=== PATIENT | female | born 1975 | race Two or more races ===

== ENCOUNTER 2016-11-30 13:35 | Emergency (ER) | payer OTHER ==
[2016-11-30 13:54] VITALS: BP 143/91; PULSE 82; TEMP 98; BMI 27.4
--- NOTE | 2016-11-30 14:13 | PDOC ---
History of Present Illness - General Chief Complaint: Cold Symptoms Stated Complaint: ABD PAIN Time Seen by Provider: 11/30/16 13:51 History Source: Patient Exam Limitations: No Limitations - History of Present Illness Initial Comments: 11/30/16 14 11/30/16 14:14 41 year old female presents with cold symptoms, runny nose, fever chills, pain in mid chest with deep inhalation. States symptoms xx 4-5 days after son came home sick, Taking ibuprofen. Timing/Duration: reports: week Severity: reports: moderate Possible Cause: Yes: illness exposure Modifying Factors: improves with: coughing, rest Associated Symptoms: reports: chest pain/soreness, muscle aches, nasal congestion, nasal drainage Aspirin Received prior to arrival: Yes: no aspirin today ASA Contraindications(Core Measure): No: Allergy Beta Ha Contraindications(Core Measure): Yes: Not Prescribed Beta Ha Given by EMS(Core Measure): No Beta Ha Taken at Home(Core Measure): No Beta Ha Not Indicated at this Time(Core Measure): No Past History - Travel Traveled outside of the country in the last 30 days: Yes Close contact w/someone who was outside of country & ill: No - Past Medical History Allergies/Adverse Reactions: Allergies Allergy/AdvReac Type Severity Reaction Status Date / Time No Known Allergies Allergy Verified 11/30/16 13:47 Home Medications: Ambulatory Orders Ibuprofen 600 mg PO TID #20 tablet 11/30/16 Lisinopril [Prinivil] 20 mg PO DAILY 11/30/16 Loratadine [Claritin] 10 mg PO DAILY #10 tablet 11/30/16 HTN: Yes - Surgical History Appendectomy: Yes - Psycho/Social/Smoking Cessation Hx Anxiety: No Suicidal Ideation: No Smoking History: Never smoked Have you smoked in the past 12 months: No Information on smoking cessation initiated: No Hx Alcohol Use: No Drug/Substance Use Hx: No Substance Use Type: None Respiratory Specific PMHX - Complaint Specific PMHX Angina: No Bronchitis: No Pneumonia: No Pulmonary Embolus: No TB (Tuberculosis): No Review of Systems - Review of Systems Able to Perform ROS?: Yes Is the patient limited Dutch proficient: No Constitutional: Yes: Chills, Fever, Night Sweats HEENTM: Yes: Nose Congestion. No: Throat Swelling Respiratory: Yes: Cough. No: Shortness of Breath, Wheezing Cardiac (ROS): Yes: Chest Pain. No: Irregular Heart Rate, Lightheadedness, Palpitations ABD/GI: No: Constipated, Nausea *Physical Exam - Vital Signs Last Vital Signs Temp Pulse Resp BP Pulse Ox 98.0 F 82 18 143/91 100 11/30/16 13:47 11/30/16 13:47 11/30/16 13:47 11/30/16 13:47 11/30/16 13:47 Medical Decision Making - Medical Decision Making 11/30/16 18:50 41 year old female with upper respiratory infection likely acquired from son URI chest xray with no acute pathology instructed to continue taking ibuprofen for pain, hydration and rest *DC/Admit/Observation/Transfer Diagnosis at time of Disposition: Upper respiratory infection Qualifiers: URI type: unspecified viral URI Qualified Code(s): J06.9 - Acute upper respiratory infection, unspecified - Discharge Dispostion Disposition: HOME Condition at time of disposition: Good Admit: No - Prescriptions Prescriptions: Loratadine [Claritin] 10 mg PO DAILY #10 tablet Ibuprofen 600 mg PO TID #20 tablet - Patient Instructions Printed Discharge Instructions: How to Avoid a Cold or Flu, DI for Viral Upper Respiratory Infection -- Adult Additional Instructions: Drink plenty fluids, rest and take ibuprofen for fever and bodyaches. - Post Discharge Activity Work/School Note: Back to Work
== END 2016-11-30 14:58 | disposition home or self-care (01) ==
LOC: JERFT 13:35
DX: J06.9 Acute upper respiratory infection, unspecified (principal); I10 Essential (primary) hypertension
CPT/HCPCS: 71020-TC; 87804; 99281-25

== ENCOUNTER 2023-08-08 21:15 | Emergency (ER) | payer OTHER ==
[2023-08-08] MEDS ORDERED: SODIUM CHLORIDE 0.9% 500 ML INFUS.BAG IV ONE (21:41)
[2023-08-08 21:51] VITALS: TEMP 97.9; BMI 28.9
[2023-08-08 22:12] LABS: BASO % 0.8 % (0-2.0); EOS % 0.5 % (0-4.5); HEMATOCRIT 30.9 % (32.4-45.2); HEMOGLOBIN 9.5 GM/dL (10.7-15.3); LYMPH % 27.4 % (8-40); MCH 21.8 pg (25.7-33.7); MCHC 30.8 g/dl (32.0-36.0); MEAN CELL VOLUME 70.8 fl (80-96); MEAN PLT VOLUME 8.7 fl (7.5-11.1); MONO % 10.1 % (3.8-10.2); NEUT % 61.2 % (42.8-82.8); PLATELET COUNT 325 10^3/uL (134-434); RBC 4.36 M/mm3 (3.60-5.2); RDW 19.6 % (11.6-15.6); WHITE BLOOD COUNT 9.8 K/mm3 (4.0-10.0)
[2023-08-08 22:14] LABS: EPI CELLS 5 /uL (0-25.1); HYALINE CASTS 0 /uL (0-3.1); PH,URINE 6.5 (5.0-8.0); URINE APPEARANCE CLEAR; URINE BACTERIA 11 /uL (0-1359); URINE BILIRUBIN NEGATIVE (NEGATIVE); URINE COLOR YELLOW; URINE GLUCOSE (UA) NEGATIVE (NEGATIVE); URINE KETONE NEGATIVE (NEGATIVE); URINE LEUK ESTERASE NEGATIVE (NEGATIVE); URINE NITRITE NEGATIVE (NEGATIVE); URINE PROTEIN NEGATIVE (NEGATIVE); URINE RBC 21 /uL (0-23.9); URINE UROBILINOGEN 0.2 mg/dL (0.2-1.0); URINE WBC 2 /uL (0-25.8)
[2023-08-08 22:19] LABS: INR 1.31 (0.83-1.09); PROTHROMBIN TIME (PATIENT) 15.2 SEC (9.7-13.0)
[2023-08-08 22:26] LABS: POTASSIUM 3.8 mmol/L (3.5-5.1)
[2023-08-08 22:28] LABS: ALBUMIN 3.7 g/dl (3.4-5.0); CALCIUM 8.6 mg/dL (8.5-10.1)
[2023-08-08 22:30] LABS: BLOOD UREA NITROGEN 14.7 mg/dL (7-18)
[2023-08-08 22:31] LABS: CREATININE 0.7 mg/dL (0.55-1.3)
[2023-08-08 22:33] LABS: BILIRUBIN,TOTAL 0.2 mg/dL (0.2-1); TOT PROT 7.7 g/dl (6.4-8.2)
[2023-08-08 23:10] LABS: ANISOCYTOSIS 2+; MACROCYTOSIS 0; OVALOCYTE 1+; TARGET CELLS 1+
[2023-08-08 23:32] LABS: BASO % 1.2 % (0-2.0); EOS % 0.8 % (0-4.5); HEMATOCRIT 28.5 % (32.4-45.2); HEMOGLOBIN 8.7 GM/dL (10.7-15.3); LYMPH % 20.4 % (8-40); MCH 21.7 pg (25.7-33.7); MCHC 30.6 g/dl (32.0-36.0); MEAN CELL VOLUME 71.1 fl (80-96); MEAN PLT VOLUME 8.6 fl (7.5-11.1); MONO % 10.7 % (3.8-10.2); NEUT % 66.9 % (42.8-82.8); PLATELET COUNT 283 10^3/uL (134-434); RBC 4.01 M/mm3 (3.60-5.2); RDW 19.9 % (11.6-15.6); WHITE BLOOD COUNT 8.2 K/mm3 (4.0-10.0)
[2023-08-09] MEDS ORDERED: METOPROLOL TARTRATE 5 MG/5 ML VIAL IVPUSH ONE (00:25)
[2023-08-09] MEDS ORDERED: METOPROLOL TARTRATE 5 MG/5 ML VIAL ONE (00:28)
[2023-08-09 00:40] VITALS: RESP 18
[2023-08-09 02:30] VITALS: BP 107/77; PULSE 98
== END 2023-08-09 02:52 | disposition home or self-care (01) ==
LOC: JER 21:15
PROC: 3E033NZ Introduction of Analgesics, Hypnotics, Sedatives into Peripheral Vein, Percutaneous Approach (ICD-10-PCS; principal; 2023-08-09)
DX: R07.9 Chest pain, unspecified (principal); R00.2 Palpitations; I48.91 Unspecified atrial fibrillation
CPT/HCPCS: 36415; 71045-TC-FY; 76705-TC; 80053; 81003; 82272; 84484; 85025; 85610; 87086; 93005; 93010; 99285-25